=== PATIENT | male | born 1985 | race Caucasian/White ===

== ENCOUNTER 2016-05-18 16:07 | Emergency (ER) | payer OTHER ==
[~2016-05-18] VITALS: Ht 182.9 cm; Wt 72.6 kg
[2016-05-18] MEDS ORDERED: IBUPROFEN 600 MG TABLET PO ONE ×2 (17:21→17:30)
[2016-05-18 18:45] LABS: BASOPHILS % (AUTO) 0.3 % (0.0-2.0); DIFF TOTAL % 100 %; HEMATOCRIT 43 % (39-51); HEMOGLOBIN 14.2 g/dL (13.5-17.5); LYMPHOCYTES # (AUTO) 1.6 /CMM (0.8-4.8); LYMPHOCYTES % (AUTO) 8.7 % (20.0-44.0); MEAN CORPUSCULAR HEMOGLOBIN 29 PG (26.0-33.0); MEAN CORPUSCULAR HGB CONC 33 g/dl (31.0-36.0); MEAN CORPUSCULAR VOLUME 87 fL (80-96); MONOCYTES # (AUTO) 1.4 /CMM (0.1-1.30); MONOCYTES % (AUTO) 7.8 % (2.0-12.0); NEUTROPHILS # (AUTO) 15.1 /CMM (1.8-8.9); NEUTROPHILS % (AUTO) 83.2 % (43.0-81.0); PLATELET COUNT (AUTO) 319 /CMM (150-450); RED BLOOD CELL COUNT(AUTO) 4.91 MIL/uL (4.5-6.0); WHITE BLOOD COUNT (AUTO) 18.2 K/uL (4.3-11.0)
[2016-05-18 19:05] LABS: ANION GAP 13 (5-14); CALCIUM, SERUM 9.2 mg/dL (8.5-10.1); CARBON DIOXIDE 32 mmol/L (21-32); CHLORIDE 93 mmol/L (98-107); CREATININE 0.8 mg/dL (0.6-1.3); GFR 115 mL/min (>60); GLUCOSE 116 mg/dL (74-106); POTASSIUM 3.6 mmol/L (3.5-5.1); SODIUM SERUM 134 mmol/L (136-145); UREA NITROGEN, BLOOD 3 mg/dL (7-18)
[2016-05-18 19:15] LABS: TROPONIN I < 0.017 ng/mL (0.00-0.056)
[2016-05-18] MEDS ORDERED: IPRATROPIUM NEB FS 0.5 MG/2.5 ML AMPUL.NEB ONE (19:16)
[2016-05-18] MEDS ORDERED: ALBUTEROL FS 2.5 MG/3 ML VIAL.NEB ONE (19:16)
[2016-05-18] MEDS ORDERED: HYDROCODONE/APAP 10/325MG 1 EA TABLET ONE (19:25)
[2016-05-18] MEDS ORDERED: IV SET PRIMARY PUMP SET 1 EA INFUS.SET MC ONE ×2 (19:28→19:42)
[2016-05-18] MEDS ORDERED: CEFTRIAXONE 1GM BAG (ER ONLY) 100 ML IV ONE (19:28)
[2016-05-18] MEDS ORDERED: CEFTRIAXONE 1GM BAG (ER ONLY) 1 GM/50 ML PIGGYBACK IV ONE (19:30)
[2016-05-18] MEDS ORDERED: AZITHROMYCIN 500 MG in IV D5W 250 ML IV SCH (19:30)
[2016-05-18] MEDS ORDERED: IPRATROPIUM NEB FS 0.5 MG/2.5 ML AMPUL.NEB NEB ONE (19:30)
[2016-05-18] MEDS ORDERED: HYDROCODONE/APAP 10/325MG 1 EA TABLET PO ONE (19:30)
[2016-05-18] MEDS ORDERED: ALBUTEROL FS 2.5 MG/3 ML VIAL.NEB NEB ONE (19:30)
[2016-05-18 19:37] LABS: BAND % (MANUAL) 10 % (0.0-5.0); LYMPHOCYTES % (MANUAL) 12 % (16-48)
[2016-05-18 19:38] LABS: ANISOCYTOSIS 1+; PLATELET ESTIMATE ADEQU; ROULEAUX 1+
[2016-05-18] MEDS ORDERED: IV D5W 250 ML IV ONE (19:42)
[2016-05-18] MEDS ORDERED: AZITHROMYCIN 500 MG VIAL ONE (19:42)
[2016-05-18 21:16] VITALS: BP 126/87
== END 2016-05-18 21:16 | disposition home or self-care (01) ==
LOC: ER 16:09
DX: J18.9 Pneumonia, unspecified organism (principal); R07.9 Chest pain, unspecified
CPT/HCPCS: 36415; 71010; 80048; 84484; 85025; 85378; 93005; 94640; 96365; 96375; 99285; A4606; J0456; J0696; J7060; Z7610

== ENCOUNTER 2016-05-20 14:32 | Emergency (ER) | payer OTHER ==
[~2016-05-20] VITALS: Ht 182.9 cm; Wt 72.6 kg
[2016-05-20] MEDS ORDERED: oxyCODONE/APAP (5/325 MG) 1 UDTAB TABLET PO ONE (16:00)
[2016-05-20] MEDS ORDERED: oxyCODONE/APAP (5/325 MG) 1 UDTAB TABLET ONE (16:53)
[2016-05-20 17:10] LABS: BASOPHILS # (AUTO) 0.1 /CMM (0.0-0.2); BASOPHILS % (AUTO) 0.8 % (0.0-2.0); DIFF TOTAL % 100 %; EOSINOPHILS # (AUTO) 0.3 /CMM (0.0-0.7); EOSINOPHILS % (AUTO) 2.2 % (0.0-6.0); HEMATOCRIT 42 % (39-51); HEMOGLOBIN 13.7 g/dL (13.5-17.5); LYMPHOCYTES # (AUTO) 2.5 /CMM (0.8-4.8); LYMPHOCYTES % (AUTO) 19.1 % (20.0-44.0); MEAN CORPUSCULAR HEMOGLOBIN 29 PG (26.0-33.0); MEAN CORPUSCULAR HGB CONC 33 g/dl (31.0-36.0); MEAN CORPUSCULAR VOLUME 87 fL (80-96); MONOCYTES # (AUTO) 0.9 /CMM (0.1-1.30); MONOCYTES % (AUTO) 6.6 % (2.0-12.0); NEUTROPHILS # (AUTO) 9.2 /CMM (1.8-8.9); NEUTROPHILS % (AUTO) 71.3 % (43.0-81.0); PLATELET COUNT (AUTO) 482 /CMM (150-450); RED BLOOD CELL COUNT(AUTO) 4.77 MIL/uL (4.5-6.0)
[2016-05-20 17:23] LABS: CALCIUM, SERUM 9.6 mg/dL (8.5-10.1); CREATININE 0.9 mg/dL (0.6-1.3); POTASSIUM 3.1 mmol/L (3.5-5.1)
[2016-05-20 17:27] LABS: INR 1.01 (0.87-1.13); PROTHROMBIN TIME 10.6 SECS (9.5-12.7)
[2016-05-20 17:28] LABS: ALBUMIN 3.8 g/dL (3.4-5.0); BILIRUBIN,DIRECT 0.1 mg/dL (0.0-0.2); BILIRUBIN,TOTAL 0.6 mg/dL (0.2-1.0); INDIRECT BILIRUBIN 0.5 mg/dL (0.0-1.1); TOTAL PROTEIN, SERUM 9.7 g/dL (6.4-8.2)
[2016-05-20 17:40] LABS: LACTIC ACID 0.8 mmol/L (0.4-2.0)
[2016-05-20] MEDS ORDERED: IV NS 0.9% 250 ML IV ONE (17:41)
[2016-05-20] MEDS ORDERED: IOHEXOL-300 100 ML VIAL IV ONE (17:42)
[2016-05-20] MEDS ORDERED: CT SWABBABLE VALVE TRANS SET 1 EA INFUS.SET MC ONE (17:42)
[2016-05-20 18:03] VITALS: BP 124/68
== END 2016-05-20 18:04 | disposition left against medical advice (07) ==
LOC: ER 14:37
DX: R07.9 Chest pain, unspecified (principal); J90 Pleural effusion, not elsewhere classified
CPT/HCPCS: 36415; 71010; 71260; 80048; 80076; 83605; 85025; 85730; 87040 ×2; 99285; A4606; J7050; Q9967; Z7610

== ENCOUNTER 2016-05-22 13:35 | Emergency (ER) | payer OTHER ==
[~2016-05-22] VITALS: Ht 172.7 cm; Wt 74.8 kg
[2016-05-22 14:25] VITALS: BP 141/75
== END 2016-05-22 15:37 | disposition left against medical advice (07) ==
LOC: ER 13:37
DX: Z53.21 Procedure and treatment not carried out due to patient leaving prior to being seen by health care provider (principal)
CPT/HCPCS: A4606; Z7610